=== PATIENT | female | born 1945 | race Caucasian/White ===

== ENCOUNTER 2016-10-16 21:54 | Emergency (ER) | payer MEDICARE ==
[2016-10-16 21:55] VITALS: BMI 20.2
[2016-10-16 22:00] VITALS: BP 144/74; PULSE 79; RESP 16; TEMP 97.6; O2SAT 99
--- NOTE | 2016-10-16 22:27 | C.PDOC ---
History Of Present Illness 71 y/o female c/o itchy rash to feet, arms, torso after being in park early this morning. pt taking benadryl po and 10 mg prednisone with minimal improvement. pt c/o itch. no difficulty breathing or swallowing, c/o dry tongue. Time Seen by Provider: 10/16/16 22:04 Chief Complaint (Nursing): Allergic Reaction History Per: Patient, Family History/Exam Limitations: no limitations Onset/Duration Of Symptoms: Days (1) Current Symptoms Are (Timing): Still Present Possible Cause: Insect Bite Associated Symptoms: Itching Home/EMS Treatment: Benadryl, Steroids Severity: Moderate Recent travel outside of the [place]: No Past Medical History Reviewed: Historical Data, Nursing Documentation, Vital Signs Vital Signs: Last Vital Signs Temp 97.6 F 10/16/16 21:57 Pulse 79 10/16/16 21:57 Resp 16 10/16/16 21:57 BP 144/74 10/16/16 21:57 Pulse Ox 99 10/16/16 22:37 - Medical History PMH: Asthma (NEVER HOSPITALIZED), HTN, Hypercholesterolemia, Hypothyroidism, Migraine, Osteoporosis Surgical History: Endoscopy - [facility] Procedures RESECTION OF LEFT KIDNEY, OPEN APPROACH (12/28/15) Family History: States: Unknown Family Hx - Social History Hx Tobacco Use: No Hx Alcohol Use: No Hx Substance Use: No Review Of Systems Constitutional: Negative for: Fever, Chills ENT: Positive for: Nose Congestion, Other (dry mouth). Negative for: Nose Discharge, Mouth Pain, Mouth Swelling, Throat Pain, Throat Swelling Cardiovascular: Negative for: Chest Pain Respiratory: Negative for: Cough, Shortness of Breath Gastrointestinal: Negative for: Vomiting, Abdominal Pain Skin: Positive for: Rash Neurological: Negative for: Weakness, Numbness Physical Exam - Physical Exam Appears: Non-toxic, No Acute Distress Skin: Warm, Dry, Other (multiple erythemsatous rraised tellez to bilateral arms, jonelle elbows, posterior neck, left lateral face, dorsum foot left. ) Head: Normacephalic Eye(s): bilateral: Normal Inspection Nose: Normal Oral Mucosa: Dry Tongue: Normal Appearing, No Swelling Lips: Normal Appearing, No Swelling Throat: Normal, No Erythema, No Exudate, No Mass Neck: Normal ROM Chest: Symmetrical, No Deformity, No Tenderness Cardiovascular: Rhythm Regular, No Murmur Respiratory: Normal Breath Sounds, No Rales, No Rhonchi, No Stridor, No Wheezing Gastrointestinal/Abdominal: Soft, No Tenderness Neurological/Psych: Oriented x3, Normal Speech, Normal Cognition ED Course And Treatment O2 Sat by Pulse Oximetry: 99 Medical Decision Making Medical Decision Making: pt with diffuse mosquitp bites. advised to stop topical hydrocortisone cream, use Benadryl topical cream or calamine lotion; use insect repellant. use claritin daily instead of Benadryl. Disposition Counseled Patient/Family Regarding: Diagnosis, Need For Followup, Rx Given - Disposition Referrals: Bambi Mcpherson MD [Staff Provider] - Disposition: HOME/ ROUTINE Disposition Time: 22:32 Condition: STABLE Additional Instructions: sTOP USING TOPICAL HYDROCORTISONE. Use either calamine lotion or Benadryl stop itch cream. Put on insect repellant when going outside, especially to park, at daewn and dusk. Option to use Claritin daily instead of benadryl. Follow up with Dr Mcpherson in 1=2 days. Return to ER for any worsening symptoms, Prescriptions: Calamine/Zinc Oxide [Calamine Lotion] 1 applic TOP BID #1 bottle Instructions: Insect Bite or Sting (ED) Forms: General Discharge Instructions - Clinical Impression Clinical Impression: Insect bite, multiple
== END 2016-10-16 22:40 | disposition home or self-care (01) ==
LOC: C.ER 21:54
DX: S50.362A Insect bite (nonvenomous) of left elbow, initial encounter (principal); S50.361A Insect bite (nonvenomous) of right elbow, initial encounter; S10.96XA Insect bite of unspecified part of neck, initial encounter; S00.86XA Insect bite (nonvenomous) of other part of head, initial encounter; S90.862A Insect bite (nonvenomous), left foot, initial encounter; W57.XXXA Bitten or stung by nonvenomous insect and other nonvenomous arthropods, initial encounter; Y92.830 Public park as the place of occurrence of the external cause

== ENCOUNTER 2017-03-27 16:15 | Emergency (ER) | payer MEDICARE ==
[2017-03-27 16:15] VITALS: BMI 20.2
[2017-03-27 16:24] VITALS: PULSE 78
[2017-03-27] MEDS ORDERED: Sodium Chloride 0.9% 1,000 ML IV ONE (16:45)
[2017-03-27 16:51] LABS: BASO # 0.1 K/uL (0.0-0.2); BASO % 0.9 % (0.0-2.0); EOS # 0.6 K/uL (0.0-0.7); EOS % 6.1 % (0.0-4.0); HEMATOCRIT 42.3 % (34.0-47.0); LYMPH # 2.1 K/uL (1.0-4.3); LYMPH % 21.4 % (20.0-40.0); MEAN CELL VOLUME 86.4 fL (81.0-99.0); MEAN CORPUSCULAR HEMOGLOBIN 29.1 pg (27.0-31.0); MEAN CORPUSCULAR HGB CONC 33.7 g/dL (33.0-37.0); MEAN PLATELET VOLUME 7.6 fL (7.2-11.7); MONO % 10.2 % (0.0-10.0); RED CELL DISTRIBUTION WIDTH 13.4 % (11.5-14.5); WHITE BLOOD COUNT 9.6 K/uL (4.8-10.8)
[2017-03-27] MEDS ORDERED: Sodium Chloride 0.9% 1,000 ML ONE (16:54)
--- NOTE | 2017-03-27 16:56 | C.PDOC ---
History Of Present Illness 71 y/o female with PMHx of HTN and Kidney Cancer presents to ED with complaints of headache, nausea and palpitations associated with elevated blood pressure since earlier today. Patient states her blood pressure was elevated and around 3pm took medication. At ED blood pressure is normal and denies chest pain, sob, fever, chills or any other complaints at this time. PMD Dr. Mcpherson Time Seen by Provider: 03/27/17 16:27 Chief Complaint (Nursing): Palpitations History Per: Patient History/Exam Limitations: no limitations Onset/Duration Of Symptoms: Hrs Current Symptoms Are (Timing): Still Present Past Medical History Reviewed: Historical Data, Nursing Documentation, Vital Signs Vital Signs: Last Vital Signs Temp 98.4 F 03/27/17 16:21 Pulse 78 03/27/17 16:40 Resp 17 03/27/17 16:40 BP 128/65 03/27/17 16:40 Pulse Ox 98 03/27/17 17:00 - Medical History PMH: Asthma (NEVER HOSPITALIZED), HTN, Hypercholesterolemia, Hypothyroidism, Migraine, Osteoporosis Surgical History: Endoscopy - [facility] Procedures RESECTION OF LEFT KIDNEY, OPEN APPROACH (12/28/15) Family History: States: No Known Family Hx - Social History Hx Tobacco Use: No Hx Alcohol Use: No Hx Substance Use: No Review Of Systems Constitutional: Negative for: Fever, Chills Cardiovascular: Positive for: Palpitations. Negative for: Chest Pain Respiratory: Negative for: Cough, Shortness of Breath Gastrointestinal: Positive for: Nausea. Negative for: Vomiting Skin: Negative for: Rash Neurological: Positive for: Headache. Negative for: Weakness, Numbness, Dizziness Physical Exam - Physical Exam Appears: Non-toxic, No Acute Distress Skin: Normal Color, Warm, Dry, No Rash Head: Atraumatic, Normacephalic Oral Mucosa: Moist Neck: Normal ROM, Supple Cardiovascular: Rhythm Regular Respiratory: Normal Breath Sounds, No Rales, No Rhonchi, No Wheezing Gastrointestinal/Abdominal: Soft, No Tenderness, No Guarding, No Rebound Extremity: Normal ROM, Capillary Refill (<2 seconds) Neurological/Psych: Oriented x3 ED Course And Treatment - Laboratory Results Result Diagrams: 03/27/17 16:47 03/27/17 16:47 Lab Interpretation: Normal ECG: Interpreted By Me ECG Rhythm: Sinus Rhythm Rate From EC O2 Sat by Pulse Oximetry: 98 (RA) Pulse Ox Interpretation: Normal - Radiology CXR: Interpreted by Me CXR Interpretation: Yes: No Acute Disease Progress Note: treated with IVF NSS and reglan. On re-evaluation neuro intact ambulating with steady gait Reassessment Condition: Improved Medical Decision Making Medical Decision Making: Plan: Labs, Reglan, Iv fluids, ECG On re-evaluation feeling better, in no distress, lungs clear Disposition Counseled Patient/Family Regarding: Studies Performed, Diagnosis, Need For Followup - Disposition Referrals: Bambi Mcpherson MD [Staff Provider] - Disposition: HOME/ ROUTINE Disposition Time: 18:30 Condition: IMPROVED Instructions: Palpitations (ED), General Headache (ED) Forms: Adjacent Applications (Tuvaluan) - POA Present On Arrival: None - Clinical Impression Clinical Impression: Palpitations, Headache - PA / PARTS DEPARTMENT SUPERVISOR / Resident Statement MD/DO has reviewed & agrees with the documentation as recorded. - Scribe Statement The provider has reviewed the documentation as recorded by the Sonibliang Muir All medical record entries made by the Sonibliang were at my direction and personally dictated by me. I have reviewed the chart and agree that the record accurately reflects my personal performance of the history, physical exam, medical decision making, and the department course for this patient. I have also personally directed, reviewed, and agree with the discharge instructions and disposition.
[2017-03-27 16:59] LABS: INR 0.9
[2017-03-27 17:03] LABS: ALB/GLOB RATIO 1.3 (1.0-2.1); ALKALINE PHOSPHATASE 97 U/L (38-126); ALT/SGPT 56 U/L (9-52); AST/SGOT 36 U/L (14-36); BILIRUBIN,TOTAL 1.6 mg/dL (0.2-1.3); BLOOD UREA NITROGEN 14 mg/dL (7-17); CALCIUM 9.1 mg/dl (8.6-10.4); CARBON DIOXIDE 30 mmol/L (22-30); CHLORIDE 95 mmol/L (98-107); GFR AFRICAN-AMERICAN > 60; GLUCOSE,RANDOM 87 mg/dL (65-105); POTASSIUM 3.9 mmol/L (3.6-5.2); SODIUM 134 mmol/L (132-148)
--- NOTE | 2017-03-27 17:30 | RAD ---
HISTORY: PALPITATIONS COMPARISON: Chest x-ray performed 06/12/16 TECHNIQUE: Chest, one view. FINDINGS: Examination limited by habitus. LUNGS: No focal consolidation. Retrocardiac calcification. Please note that chest x-ray has limited sensitivity for the detection of pulmonary masses. PLEURA: No significant pleural effusion identified. No definite pneumothorax . CARDIOVASCULAR: Heart size appears within normal limits. OSSEOUS STRUCTURES: Degenerative changes. VISUALIZED UPPER ABDOMEN: Unremarkable. OTHER FINDINGS: None. IMPRESSION: No focal consolidation, significant pleural effusion, or definite pneumothorax identified. Retrocardiac calcification.
[2017-03-27 18:03] LABS: URINE BILIRUBIN NEGATIVE (NEGATIVE); URINE BLOOD NEGATIVE (NEGATIVE); URINE COLOR Straw (YELLOW); URINE GLUCOSE (UA) NORMAL (Normal); URINE KETONE NEGATIVE (NEGATIVE); URINE LEUKOCYTE ESTERASE TRACE Leu/uL (Negative); URINE PROTEIN NEGATIVE (NEGATIVE); URINE UROBILINOGEN NORMAL mg/dL (0.2-1.0); WBC URINE 1 /hpf (0-5)
[2017-03-27 18:17] VITALS: BP 121/55; RESP 20; TEMP 97.4; O2SAT 98
--- NOTE | 2017-03-28 12:31 | CARD ---
APPROVED REPORT EKG Measurement Heart [id number] <Conclusion> Sinus rhythm with occasional premature ventricular complexes Nonspecific ST abnormality Abnormal ECG
== END 2017-03-27 18:23 | disposition home or self-care (01) ==
LOC: C.ER 16:15
DX: R00.2 Palpitations (principal); R51 Headache; I10 Essential (primary) hypertension; E78.00 Pure hypercholesterolemia, unspecified
CPT/HCPCS: 71010; 80053; 81001; 84484; 85025; 85610; 85730; 93005; 96374; 99284; J2765; J7040

== ENCOUNTER 2018-04-22 07:32 | Outpatient (CLI) | payer MEDICARE | END 2018-04-22 07:33 | disposition home or self-care (01) | LOC: C.LAB 07:32 | DX: E78.00 Pure hypercholesterolemia, unspecified (principal); I10 Essential (primary) hypertension; J45.909 Unspecified asthma, uncomplicated ==

== ENCOUNTER 2018-04-22 11:12 | Emergency (ER) | payer MEDICARE ==
[2018-04-22 11:13] VITALS: BMI 20.2
--- NOTE | 2018-04-26 10:25 | CARD ---
APPROVED REPORT Date of service: 04/22/2018 EKG Measurement Heart [id number] <Conclusion> Normal sinus rhythm Normal ECG
== END 2018-04-22 11:55 | disposition left against medical advice (07) ==
LOC: C.ER 11:12
DX: Z02.89 Encounter for other administrative examinations (principal); R07.89 Other chest pain
CPT/HCPCS: 82948; 93005; LWBS0

== ENCOUNTER 2018-07-09 09:24 | Outpatient (CLI) | payer MEDICARE | END 2018-07-09 09:25 | disposition home or self-care (01) | LOC: C.USIC 09:25 | DX: E04.0 Nontoxic diffuse goiter (principal) ==

== ENCOUNTER 2018-09-01 09:29 | Outpatient (CLI) | payer MEDICARE | END 2018-09-01 09:30 | disposition home or self-care (01) | LOC: C.DEXAIC 09:29 ==